=== PATIENT | male | born 1985 | race Caucasian/White ===

== ENCOUNTER 2018-11-26 17:06 | Emergency (ER) | payer SELFPAY ==
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
== END 2018-11-26 18:44 | disposition home or self-care (01) ==
LOC: ER 17:06
DX: S46.012D Strain of muscle(s) and tendon(s) of the rotator cuff of left shoulder, subsequent encounter (principal); F17.210 Nicotine dependence, cigarettes, uncomplicated; V43.52XD Car driver injured in collision with other type car in traffic accident, subsequent encounter
CPT/HCPCS: 99283

== ENCOUNTER 2018-12-14 17:33 | Emergency (ER) | payer SELFPAY ==
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
[2018-12-14] MEDS ORDERED: KETOROLAC 30 MG/ML VIAL IM ONE (18:27)
[2018-12-14] MEDS ORDERED: LIDOCAINE 1% MPF 100MG/10ML STERILE-PAK AMPULE IV ONE (18:29)
[2018-12-14] MEDS ORDERED: Diph,Pert(Acell),Tet Vac 0.5 ML SYR IM ONE (18:59)
[2018-12-14] MEDS ORDERED: LIDOCAINE 1% MDV (10MG/ML) 20ML VIAL SQ ONE (19:14)
--- NOTE | 2018-12-16 12:51 | RADIOLOGY REPORT ---
EXAM: LEFT SHOULDER HISTORY: LEFT SHOULDER PAIN STATUS POST FALL. TECHNIQUE: Three views of the left shoulder were obtained. Comparison: None. FINDINGS: There is posterior dislocation of the humeral head with respect to the glenoid. There is no visible associated fracture on these images. The remaining osseous structures are unremarkable. IMPRESSION: POSTERIOR LEFT SHOULDER DISLOCATION WITH NO VISIBLE FRACTURE. JOB NUMBER: [id number] MTDD
--- NOTE | 2018-12-16 12:55 | RADIOLOGY REPORT ---
EXAM: LEFT SHOULDER HISTORY: LEFT SHOULDER DISLOCATION. POST REDUCTION VIEWS. TECHNIQUE: Four views of the left shoulder were obtained. Comparison: 12/14/18. FINDINGS: There has been successful reduction of the previously noted posterior dislocation. Tiny calcific densities are noted adjacent to the posterior aspect of the greater tuberosity suggesting tiny fracture fragments. No other fractures are identified. IMPRESSION: 1. SUCCESSFUL REDUCTION OF THE PREVIOUSLY NOTED DISLOCATION. 2. TINY FRACTURE FRAGMENTS ADJACENT TO THE POSTERIOR ASPECT OF THE GREATER TUBEROSITY. JOB [facility]BER: [id number] [facility]
== END 2018-12-14 19:31 | disposition home or self-care (01) ==
LOC: ER 17:33
DX: S43.085A Other dislocation of left shoulder joint, initial encounter (principal); S90.511A Abrasion, right ankle, initial encounter; R07.89 Other chest pain; W11.XXXA Fall on and from ladder, initial encounter; F17.210 Nicotine dependence, cigarettes, uncomplicated
CPT/HCPCS: 23650; 90715; 96372; 99284; J1885